=== PATIENT | male | born 1945 | race Caucasian/White ===

== ENCOUNTER 2017-07-28 12:46 | Inpatient (IN) ==
[2017-07-28 14:24] LABS: Basophils # 0.1 K/mcL (0.0-0.2); Basophils % 1.3 %; Eosinophils # 0.2 K/mcL (0.0-0.6); Eosinophils % 3.7 %; Hematocrit 48.2 % (37.5-50.1); Hemoglobin 16.1 g/dL (12.9-16.9); Immature Granulocytes % 0.4 % (0-4); Lymphocytes # 1.5 K/mcL (0.6-4.6); Lymphocytes % 27.7 %; Mean Corpuscular HGB Conc 33.4 g/dL (31.6-35.5); Mean Corpuscular Hemoglobin 28.8 pg (28.0-33.3); Mean Corpuscular Volume 86.1 fL (83.0-100.0); Mean Platelet Volume 9.1 fL (9.4-12.4); Monocytes # 0.4 K/mcL (0.0-1.3); Monocytes % 6.5 %; Neutrophils # 3.3 K/mcL (1.6-8.9); Platelet Count 189 K/mcL (140-400); Red Cell Distribution Width 13.7 % (11.5-14.5); Segmented Neutrophils % 60.4 %
[2017-07-28 14:41] LABS: Alanine Aminotransferase 23 Units/L (7-52); Albumin 4.4 g/dL (3.5-5.7); Albumin/Globulin Ratio 1.6 (1.1-2.2); Alkaline Phosphatase 61 Units/L (34-104); Aspartate Amino Transferase 16 Units/L (13-39); BUN/Creatinine Ratio 13 (6-26); Bilirubin,Direct 0.2 mg/dL (0.0-0.2); Bilirubin,Indirect 0.4 mg/dL (0.0-1.2); Bilirubin,Total 0.6 mg/dL (0.3-1.0); Blood Urea Nitrogen 15 mg/dL (8-23); Calcium 9.2 mg/dL (8.6-10.3); Carbon Dioxide 29 mEq/L (23-29); Chloride 106 mEq/L (98-107); Ethanol < 10 mg/dL (Less than 10); Globulin 2.8 g/dL (2.4-3.5); Glucose 99 mg/dL (70-105); Osmolality,Calculated 291 (280-300); Potassium 4.2 mEq/L (3.5-5.1); Sodium 140 mEq/L (136-145); Total Protein 7.2 g/dL (6.4-8.9); eGFR For African Americans > 60 (> 60); eGFR For Non-African Americans > 60 (> 60)
--- NOTE | 2017-07-28 14:45 | Emergency Department Note ---
Disposition Clinical Impression: Expressive aphasia Disposition: Admitted As Inpatient Condition: Good General Adult HPI - General Chief complaint: ED Neuro Symptoms/Deficit Stated complaint: expressive asphagia, AMS-3 days Time Seen by Provider: 07/28/17 14:40 Source: patient, family Limitations: no limitations - History of Present Illness Pain Scale: 0 - Related Data Home Medications Medication Instructions Recorded Confirmed Metoprolol [Lopressor] 25 mg PO DAILY 07/28/17 07/28/17 Allergies Allergy/AdvReac Type Severity Reaction Status Date / Time No Known Allergies Allergy Verified 07/28/17 13:05 Past Medical History - Past Medical History Medical history: Reports: hypertension Psychiatric history: Reports: no psych history - Social History Smoking Status: Never smoker Smokeless Tobacco Status: No Alcohol use: Reports: none Physical Exam - General Limitations: no limitations General appearance: alert, in no apparent distress Course Vital Signs Temperature 97.6 F 07/28/17 13:02 Pulse Rate 71 07/28/17 13:02 Respiratory Rate 16 07/28/17 13:02 Blood Pressure 189/87 07/28/17 13:02 O2 Sat by Pulse Oximetry 94 07/28/17 13:02 Temperature 97.7 F 07/28/17 19:26 Pulse Rate 74 07/28/17 19:26 Respiratory Rate 17 07/28/17 19:26 Blood Pressure 186/83 07/28/17 19:26 O2 Sat by Pulse Oximetry 96 07/28/17 19:26 Oxygen Delivery Oxygen Delivery Room Air Medical Decision Making - Lab Data Result diagrams: 07/28/17 14:07 07/28/17 14:07 Lab Results 07/28/17 07/28/17 Range/Units 14:07 14:07 WBC 5.4 (4.3-11.1) K/mcL RBC 5.60 H (4.19-5.50) M/mcL Hgb 16.1 (12.9-16.9) g/dL Hct 48.2 (37.5-50.1) % MCV 86.1 (83.0-100.0) fL MCH 28.8 (28.0-33.3) pg MCHC 33.4 (31.6-35.5) g/dL RDW 13.7 (11.5-14.5) % Plt Count 189 (140-400) K/mcL MPV 9.1 L (9.4-12.4) fL Immature Gran % 0.4 (0-4) % Seg Neutrophils % 60.4 % Lymphocytes % 27.7 % Monocytes % 6.5 % Eosinophils % 3.7 % Basophils % 1.3 % Neutrophils # 3.3 (1.6-8.9) K/mcL Lymphocytes # 1.5 (0.6-4.6) K/mcL Monocytes # 0.4 (0.0-1.3) K/mcL Eosinophils # 0.2 (0.0-0.6) K/mcL Basophils # 0.1 (0.0-0.2) K/mcL Sodium 140 (136-145) mEq/L Potassium 4.2 (3.5-5.1) mEq/L Chloride 106 (98-107) mEq/L Carbon Dioxide 29 (23-29) mEq/L BUN 15 (8-23) mg/dL Creatinine 1.14 (0.70-1.30) mg/dL Est GFR ( Amer) > 60 (> 60) Est GFR (Non-Af Amer) > 60 (> 60) BUN/Creatinine Ratio 13 (6-26) Glucose 99 (70-105) mg/dL Calculated Osmolality 291 (280-300) Calcium 9.2 (8.6-10.3) mg/dL Total Bilirubin 0.6 (0.3-1.0) mg/dL Direct Bilirubin 0.2 (0.0-0.2) mg/dL Indirect Bilirubin 0.4 (0.0-1.2) mg/dL AST 16 (13-39) Units/L ALT 23 (7-52) Units/L Alkaline Phosphatase 61 (34-104) Units/L Serum Total Protein 7.2 (6.4-8.9) g/dL Albumin 4.4 (3.5-5.7) g/dL Globulin 2.8 (2.4-3.5) g/dL Albumin/Globulin Ratio 1.6 (1.1-2.2) Ethyl Alcohol < 10 (Less than 10) mg/dL Attestation Statement - Attestation Attestation: I examined this patient and my medical decision-making was reviewed with the Resident Physician. I agree with the documented findings, disposition and treatment plan as described except to the extent set forth below. [id number] time provided Patient arrives with expressive aphasia and some confusion over the past several days. He appears in no acute distress on exam. The patient is not a candidate for TPA given the onset of symptoms being several days ago. The patient was evaluated in conjunction with the resident physician.
--- NOTE | 2017-07-28 14:57 | Emergency Department Note ---
Disposition Clinical Impression: Expressive aphasia Disposition: Admitted As Inpatient Condition: Good General Adult HPI - General Chief complaint: ED Neuro Symptoms/Deficit Stated complaint: expressive asphagia, AMS-3 days Time Seen by Provider: 07/28/17 14:40 Source: patient, family Mode of arrival: ambulatory Limitations: no limitations Nursing Notes Reviewed: Yes Vital Signs Reviewed: Yes - History of Present Illness HPI Narrative: Patient presenting to the ED with the chief complaint of feeling confused for the last few days. States that he really feels fine otherwise, but it feels kind of fuzzy headed. Family states that he was having some trouble getting his words out yesterday. He denies any fever or chills, chest pain, shortness of breath, cough, abdominal pain, nausea, vomiting, diarrhea, rash, pain or swelling in his legs. States he is fairly healthy and is not sure what going on. No changes in vision, numbness or weakness. Pain Scale: 0 - Related Data Home Medications Medication Instructions Recorded Confirmed Metoprolol [Lopressor] 25 mg PO DAILY 07/28/17 07/28/17 Allergies Allergy/AdvReac Type Severity Reaction Status Date / Time No Known Allergies Allergy Verified 07/28/17 13:05 Review of Systems: As reviewed in the HPI. All other systems reviewed are negative or normal. Constitutional: Reports: as per HPI Eyes: Reports: as per HPI ENT ED: Reports: as per HPI Past Medical History - Past Medical History Attestation: Yes The following information was validated with the patient. Source: patient, old records reviewed Medical history: Reports: hypertension Psychiatric history: Reports: no psych history - Social History Smoking Status: Never smoker Smokeless Tobacco Status: No Alcohol use: Reports: none Physical Exam - General Limitations: no limitations General appearance: alert, in no apparent distress - Head Head exam: atraumatic, normocephalic, normal inspection - Eye Eye exam: Present: normal appearance, PERRL, EOMI - ENT ENT exam: normal exam, normal oropharynx, mucous membranes moist - Neck Neck exam: Present: normal inspection, full ROM, trachea midline - Chest Chest inspection: Present: normal inspection, symmetric chest wall rise - Respiratory Respiratory exam: Present: normal lung sounds bilaterally - Cardiovascular Cardiovascular exam: Present: regular rate, normal rhythm, normal heart sounds - Abdominal Exam Abdominal exam: Present: soft, Non-Tender. Absent: tenderness, distention, guarding, rebound, rigidity - Extremities Exam Extremities exam: Present: normal inspection, full ROM. Absent: tenderness, pedal edema - Neurological Exam Neurological exam: Present: alert, oriented X3, CN II-XII intact - Psychiatric Psychiatric exam: Present: normal affect, normal mood - Skin Skin exam: Present: warm, dry, intact, normal color Course Course Narrative: Patient presenting to the ED with feeling fuzzy headed. No acute neurological deficits and is well outside of the window for TPA or thrombectomy. We will get a CT of his head and likely admit for an MRI. Vital Signs Temperature 97.6 F 07/28/17 13:02 Pulse Rate 71 07/28/17 13:02 Respiratory Rate 16 07/28/17 13:02 Blood Pressure 189/87 07/28/17 13:02 O2 Sat by Pulse Oximetry 94 07/28/17 13:02 Temperature 97.7 F 07/28/17 19:26 Pulse Rate 74 07/28/17 19:26 Respiratory Rate 17 07/28/17 19:26 Blood Pressure 186/83 07/28/17 19:26 O2 Sat by Pulse Oximetry 96 07/28/17 19:26 Oxygen Delivery Oxygen Delivery Room Air Medical Decision Making - Medical Records Medical records reviewed: Yes I reviewed the patient's medical records. - Lab Data Lab results reviewed: Yes I reviewed the patient's lab results. Result diagrams: 07/28/17 14:07 07/28/17 14:07 Lab Results 07/28/17 07/28/17 Range/Units 14:07 14:07 WBC 5.4 (4.3-11.1) K/mcL RBC 5.60 H (4.19-5.50) M/mcL Hgb 16.1 (12.9-16.9) g/dL Hct 48.2 (37.5-50.1) % MCV 86.1 (83.0-100.0) fL MCH 28.8 (28.0-33.3) pg MCHC 33.4 (31.6-35.5) g/dL RDW 13.7 (11.5-14.5) % Plt Count 189 (140-400) K/mcL MPV 9.1 L (9.4-12.4) fL Immature Gran % 0.4 (0-4) % Seg Neutrophils % 60.4 % Lymphocytes % 27.7 % Monocytes % 6.5 % Eosinophils % 3.7 % Basophils % 1.3 % Neutrophils # 3.3 (1.6-8.9) K/mcL Lymphocytes # 1.5 (0.6-4.6) K/mcL Monocytes # 0.4 (0.0-1.3) K/mcL Eosinophils # 0.2 (0.0-0.6) K/mcL Basophils # 0.1 (0.0-0.2) K/mcL Sodium 140 (136-145) mEq/L Potassium 4.2 (3.5-5.1) mEq/L Chloride 106 (98-107) mEq/L Carbon Dioxide 29 (23-29) mEq/L BUN 15 (8-23) mg/dL Creatinine 1.14 (0.70-1.30) mg/dL Est GFR ( Amer) > 60 (> 60) Est GFR (Non-Af Amer) > 60 (> 60) BUN/Creatinine Ratio 13 (6-26) Glucose 99 (70-105) mg/dL Calculated Osmolality 291 (280-300) Calcium 9.2 (8.6-10.3) mg/dL Total Bilirubin 0.6 (0.3-1.0) mg/dL Direct Bilirubin 0.2 (0.0-0.2) mg/dL Indirect Bilirubin 0.4 (0.0-1.2) mg/dL AST 16 (13-39) Units/L ALT 23 (7-52) Units/L Alkaline Phosphatase 61 (34-104) Units/L Serum Total Protein 7.2 (6.4-8.9) g/dL Albumin 4.4 (3.5-5.7) g/dL Globulin 2.8 (2.4-3.5) g/dL Albumin/Globulin Ratio 1.6 (1.1-2.2) Ethyl Alcohol < 10 (Less than 10) mg/dL - Radiology Data Radiology results reviewed: Yes I reviewed the patient's radiology results. - EKG Data EKG #1 EKG attestation: Yes I reviewed and interpreted this EKG. EKG results narrative: Sinus rhythm, rate 70, ALYCE 150, QRS 103, QTC 4:15, left axis deviation
[2017-07-28] MEDS ORDERED: Acetaminophen 325 MG TABLET PO PRN (17:57)
[2017-07-28] MEDS ORDERED: Naloxone 0.4 MG/ML INJ IVP PRN (20:44)
--- NOTE | 2017-07-28 21:18 | Internal Med History&Physical ---
Date of Encounter: 07/28/17 Time of Encounter: 19:40 Internal Medicine - H&P: HPI Chief complaint: difficulty speaking Admitted From: Emergency Dept Plans for Post Hospital Care: Home History of present illness: Mr. Melo is a 71 year old male who presents with a 2 day history of difficulty speaking, word finding, and expressing himself. He first noticed the symptoms 2 nights ago while playing cards with some friends. He knew what he wanted to say, but he was unable to verbally express himself and/or communicate with his friends. Symptoms persisted throughout the last 2 days and have slowly started improving. Because of persistence of symptoms, he came to the ER for evaluation where he essentially had a negative workup. CT of the head was performed and revealed an old remote infarct but no acute findings. He underwent MRI of the brain en route from the ER to the floor. MRI findings were positive for acute left basilar ganglia infarct. I contacted neurology and spoke with Dr. Kim and consulted him patient to see patient tomorrow. Patient denies any chronic medical problems other than some blood pressure problems. He denies any prior history of known stroke, heart disease, diabetes , or hyperlipidemia. He is an active individual. Family history is negative for any stroke. He denies any cardiac dysrhythmias as well. Presently, he feels well and almost at baseline. He still has some difficulty with word finding, but otherwise, he is back to baseline. He has had no difficulty swallowing, choking, no numbness, weakness, or paresthesias. Past Med Surg Social Fam HX - Past Medical History Attestation: Yes The following information was validated with the patient. Source: old records reviewed Medical history: hypertension Psychiatric history: no psych history - Past Surgical History Surgical History: no surgical history - Social History Smoking Status: Never smoker Smokeless Tobacco Status: No Alcohol use: none Occupational status: retired Current living situation: Home, With Family Activity Level: Very active Recent Out of Country Travel Within the Last 8 Weeks: No - Family History Mother Living Status: Hx Family Neurologic Disorders: No Father Living Status: Hx Family Neurologic Disorders: No Internal Medicine - H&P: Meds Metoprolol [Lopressor] 25 mg PO DAILY 07/28/17 [History] 3 Allergy/AdvReac Type Severity Reaction Status Date / Time No Known Allergies Allergy Verified 07/28/17 13:05 - Constitutional Constitutional: no chills, no fever(s), no night sweats - EENT Eyes: no blurry vision, no change in vision Ears: no ear pain, no tinnitus Nose, mouth and throat: no nasal congestion, no sinus pressure, no sore throat - Cardiovascular Cardiovascular ROS IM: no chest pain, no dyspnea, no dyspnea on exertion, no irregular heart rhythm, no lightheadedness, no orthopnea, no palpitations, no paroxysmal nocturnal dyspnea, no syncope - Respiratory Respiratory: no cough, no dyspnea, no hemoptysis, no pain on inspiration, no chest congestion, no excessive phlegm production, no change in phlegm color - Gastrointestinal Gastrointestinal: no abdominal pain, no diarrhea, no hematemesis, no hematochezia, no melena, no nausea, no vomiting - Genitourinary Genitourinary ROS male: no dysuria, no flank pain, no hematuria - Musculoskeletal Musculoskeletal ROS IM: no arthralgias, no back pain, no muscle cramps, no muscle weakness, no myalgias - Integumentary Integumentary IM: no rash, no jaundice - Neurological Neurological ROS: abnormal speech (expressive aphasia -- much improved), no confusion, no convulsions, no disequilibrium, no dizziness, no focal weakness, no frequent falls, no headache(s), no numbness, no paresthesias - Psychiatric Psychiatric: no anxiety, no depression - Endocrine Endocrine IM: no polydipsia, no polyuria - Hematologic/Lymphatic Hematologic/Lymphatic: no easy bruising, no lymphadenopathy - Allergic/Immunologic Allergic/Immunologic: no wheezing, no GI upset with certain foods - Constitutional Vitals: Temp Pulse Resp BP Pulse Ox 97.7 F 74 17 186/83 96 07/28/17 19:26 07/28/17 19:26 07/28/17 19:26 07/28/17 19:26 07/28/17 19:26 General appearance: Present: cooperative, A&O X 3, pleasant, no acute distress, answers questions appropriately (has some periods with difficulty speaking at times) - Head Head exam: Present: atraumatic, normal inspection - Eye Eye exam: Present: EOMI, PERRL. Absent: scleral icterus Pupils: Present: normal accommodation - ENT ENT exam: Present: mucous membranes moist, normal exam, normal oropharynx - Neck Neck exam general surgery: Present: full ROM, supple. Absent: lymphadenopathy, tenderness, nuchal rigidity, thyromegaly - Respiratory Respiratory exam: Present: CTAB. Absent: chest wall tenderness, rales, respiratory distress, rhonchi, wheezes - Cardiovascular Cardiovascular exam: Present: RRR, +S1, +S2. Absent: diastolic murmur, systolic murmur - GI/Abdominal GI/Abdominal exam: Present: normal bowel sounds, soft. Absent: guarding, hepatomegaly, mass, rebound, splenomegaly, tenderness - Extremities Exam Extremities exam: Present: full ROM, normal capillary refill, warm, radial pulses palpable and symmetrical. Absent: calf tenderness, joint swelling - Back Exam Back exam: Present: normal inspection. Absent: CVA tenderness (L), CVA tenderness (R) - Neurological Exam Neurological exam: Present: alert, CN II-XII intact, oriented X3, reflexes normal, strengths equal and symetr throughout, speech deficit (mild expressive aphasia/dysphasia). Absent: motor sensory deficit, facial droop - Psychiatric Psychiatric exam: Present: normal affect, normal mood - Skin Skin exam: Present: dry, warm. Absent: rash Internal Med - H&P Results - Labs CBC & Chem 7: 07/28/17 14:07 07/28/17 14:07 - EKG Data -: EKG Interpreted by Myself EKG shows normal: sinus rhythm - EKG Data Prior EKG available for review: no EKG comments: 07/28/17 21:25 NSR; no acute changes - Impressions ITS Impressions Head MRA 07/28/17 18:58 IMPRESSION: Left basal ganglia infarcts are acute. 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 The findings were sent to the Radiology Results Communication Center at 7:39 pm on 07/28/2017to be communicated to a licensed caregiver. D/ / Artie Oliveira MD / Artie Oliveira MD Interpreting Provider: Artie Oliveira MD - Diagnostic Studies Chest x-ray Status: image reviewed by me (negative) - Assessment and plan (1) Stroke Current Visit: Yes Status: Acute Assessment and plan: 1. Will start daily aspirin and STATIN. 2. Consult PT/OT/ST. 3. Consult Neurology -- discussed with Dr. Kim. 4. Will order ECHO and Carotid Dopplers. Qualifiers: CVA mechanism: unspecified Qualified Code(s): I63.9 - Cerebral infarction, unspecified (2) Hypertension Current Visit: Yes Status: Chronic Assessment and plan: 1. Monitor BP and allow for auto-regulation in the face of stroke. 2. If SBP > 180, will treat. 3. Hold Metoprolol for now, resume soon once symptoms resolve. Qualifiers: Hypertension type: essential hypertension Qualified Code(s): I10 - Essential (primary) hypertension (3) Expressive aphasia Current Visit: Yes Status: Acute Assessment and plan: 1. Due to stroke. 2. Steadily improving but not yet back to baseline. 3. Consult ST as above for assessment and therapy. (4) DVT prophylaxis Current Visit: Yes Status: Acute Assessment and plan: 1. Heparin SQ.
[2017-07-28] MEDS: D5% in 0.45% NACL 1,000 ML IVC SCH (22:46)
[2017-07-28] MEDS: *HR* Heparin 5,000 UNIT/ML VIAL SQ SCH (22:47)
[2017-07-29] MEDS: *HR* Heparin 5,000 UNIT/ML VIAL SQ SCH ×2 (05:47→17:10)
[2017-07-29 07:12] LABS: Prothrombin Time 10.8 Seconds (9.4-12.1)
[2017-07-29 07:14] LABS: Activated Partial Thrombo Time 35.1 Seconds (26.0-36.0)
[2017-07-29 07:18] LABS: Basophils # 0.1 K/mcL (0.0-0.2); Basophils % 1.6 %; Eosinophils # 0.2 K/mcL (0.0-0.6); Eosinophils % 4.4 %; Hematocrit 47.6 % (37.5-50.1); Hemoglobin 15.4 g/dL (12.9-16.9); Immature Granulocytes % 0.2 % (0-4); Lymphocytes # 1.8 K/mcL (0.6-4.6); Lymphocytes % 34.8 %; Mean Corpuscular HGB Conc 32.4 g/dL (31.6-35.5); Mean Corpuscular Hemoglobin 27.9 pg (28.0-33.3); Mean Corpuscular Volume 86.2 fL (83.0-100.0); Mean Platelet Volume 9.4 fL (9.4-12.4); Monocytes # 0.3 K/mcL (0.0-1.3); Monocytes % 6.2 %; Neutrophils # 2.7 K/mcL (1.6-8.9); Platelet Count 174 K/mcL (140-400); Red Blood Count 5.52 M/mcL (4.19-5.50); Red Cell Distribution Width 13.7 % (11.5-14.5); Segmented Neutrophils % 52.8 %
[2017-07-29 07:27] LABS: Alanine Aminotransferase 21 Units/L (7-52); Albumin/Globulin Ratio 1.4 (1.1-2.2); Alkaline Phosphatase 55 Units/L (34-104); Aspartate Amino Transferase 16 Units/L (13-39); BUN/Creatinine Ratio 13 (6-26); Bilirubin,Total 0.8 mg/dL (0.3-1.0); Blood Urea Nitrogen 14 mg/dL (8-23); Calcium 8.9 mg/dL (8.6-10.3); Carbon Dioxide 26 mEq/L (23-29); Chloride 109 mEq/L (98-107); Chol/HDL Ratio 5.2 (0-4.9); Cholesterol 181 mg/dL (< 200); Globulin 2.8 g/dL (2.4-3.5); Glucose 117 mg/dL (70-105); HDL Cholesterol 35 mg/dL (40-59); LDL Cholesterol,Calculated 117 mg/dL (0-99); Magnesium 2.3 mg/dL (1.6-2.6); Osmolality,Calculated 294 (280-300); Potassium 3.6 mEq/L (3.5-5.1); Sodium 141 mEq/L (136-145); Total Protein 6.8 g/dL (6.4-8.9); Triglycerides 145 mg/dL (< 150); eGFR For African Americans > 60 (> 60); eGFR For Non-African Americans > 60 (> 60)
[2017-07-29] MEDS: Aspirin 81 MG TAB.CHEW PO SCH (09:02)
[2017-07-29] MEDS: D5% in 0.45% NACL 1,000 ML IVC SCH (11:53)
--- NOTE | 2017-07-29 12:38 | Neurology - Consult Note ---
Date of Encounter: 07/29/17 Time of Encounter: 12:38 Assessment and Plan (1) Stroke Current Visit: Yes Status: Acute 71 year old man with PMH significant for HTN, bilateral hearing difficulty who developed acute onset of speech difficulty, expressive in nature secondary to new cerebral infarct involving the left BG, likely caused to left RADIO TALK SHOW HOST occlusion/ stenosis. Size of the stroke is substantial and involves the area of left BG that can cause speech difficulty, behavioral and mood changes as well especially when on the dominant left left side. Recommend full stroke work up including echocardiography, carotid artery duplex. Agree with aspirin 81mg daily. Need statin therapy for hyperlipidemia. Speech therapy. Qualifiers: CVA mechanism: occlusion Precerebral and cerebral artery: posterior cerebral artery Laterality of affected vessel: left Qualified Code(s): I63.532 - Cerebral infarction due to unspecified occlusion or stenosis of left posterior cerebral artery History of Present Illness Chief complaint: difficulty in speech HPI: Mr. Melo is a 71 year old male with PMH significant for HTN, bilateral hearing loss, carotid mass who is consulted regarding acute onset of speech difficulty. The symptoms started actually 2-3 days prior to admission. He states that he was playing cards with friends and all of a sudden he could not get the right words out. He apparently still has expressive dysphasia even now and can not tell me exactly what happened at the onset of his symptoms. Apparently he was playing cards with them and then when he started talking he was not able to communicate with them. He has however, no focal weakness. Is able to walk. No mental status changes. Initial CT of head showed large left BG focal hypointensity. Subsequent MRI of brain confirmed the finding of acute cerebral infarct at the left BG. MRA of brain showed moderate to severe stenosis at the left RADIO TALK SHOW HOST. Patient denies any discomforts. He still has expressive dysphasia Past Med Surg Social Fam HX - Past Medical History Medical history: hypertension Psychiatric history: no psych history - Past Surgical History Surgical History: no surgical history - Social History Smoking Status: Former smoker Smokeless Tobacco Status: No Alcohol use: none Drug use: other - Family History Mother Living Status: Cause of : Cancer Hx Family Cancer: Yes Hx Family Neurologic Disorders: No Father Living Status: Age at : 80 Cause of : complications post hip fx Hx Family Neurologic Disorders: No Medications and Allergies Metoprolol [Lopressor] 25 mg PO DAILY 07/28/17 [History] 3 Allergy/AdvReac Type Severity Reaction Status Date / Time No Known Allergies Allergy Verified 07/28/17 13:05 All Systems: The remainder of the systems were reviewed and are negative Physical Examination - Vital Signs Vital Signs: Initial Vital Signs Temp Pulse Resp BP Pulse Ox 97.6 F 71 16 189/87 94 07/28/17 13:02 07/28/17 13:02 07/28/17 13:02 07/28/17 13:02 07/28/17 13:02 - Constitutional General appearance: comfortable - Neurologic Sensorimotor examination: intact (Grossly intact) Detailed motor examination: full strength in all major muscle groups Mental Status Examination: awake, alert, oriented to person, oriented to place, oriented to time, follows commands appropriately, answers questions appropriately, no aphasia (Patient has expressive aphasia), no aproxia, expressive aphasia Cranial nerve examination: PERRL, EOMI, visual lao intact, corneal reflexes brisk symmetrically, sensory to face intact, mastication intact, no facial asymmetry is present, no dysarthria, hearing is intact symmetrically, soft palate elevates bilaterally upon phonation, gag reflex intact, flexes SCM and trapezius muscles symmetrically with full power, tongue protrudes midline, no atrophy or facial fasiculations present Results - Laboratory Findings CBC and BMP: 07/29/17 06:37 07/29/17 06:37 Abnormal lab findings: Abnormal lab results RBC 5.52 M/mcL (4.19-5.50) H 07/29/17 06:37 MCH 27.9 pg (28.0-33.3) L 07/29/17 06:37 Chloride 109 mEq/L (98-107) H 07/29/17 06:37 Glucose 117 mg/dL (70-105) H 07/29/17 06:37 POC Glucose 101 mg/dL (70-99) H 07/29/17 11:04 LDL Cholesterol, Calc 117 mg/dL (0-99) H 07/29/17 06:37 HDL Cholesterol 35 mg/dL (40-59) L 07/29/17 06:37 Cholesterol/HDL Ratio 5.2 (0-4.9) H 07/29/17 06:37 - Diagnostic Findings Additional findings: [id number] CT/CT head/brain wo con IMPRESSION: No acute intracranial abnormality. Large remote infarct centered in the anterior basal ganglia on the left as well as a smaller lacunar infarct in the left putamen. Mild chronic small vessel white matter ischemic changes. EXAMINATION: MRI OF THE BRAIN WITHOUT CONTRAST; MRA OF THE HEAD WITHOUT CONTRAST 07/28/2017 6:58 pm; 07/28/2017 7:06 pm TECHNIQUE: Multiplanar multisequence MRI of the brain was performed without the administration of intravenous contrast.; MRA of the head was performed utilizing [id number] imaging with MIP images. No intravenous contrast was administered. COMPARISON: Noncontrast head CT from 3:26 p.m. HISTORY: ORDERING SYSTEM PROVIDED HISTORY: recent possible stroke Additional tech notes: [facility] [address] [facility]; ORDERING SYSTEM PROVIDED HISTORY: aphasia FINDINGS: MRI brain: INTRACRANIAL STRUCTURES/VENTRICLES: There are acute lacunar infarcts within the left basal ganglia measuring up to 2.1 cm in diameter. Chronic white matter microvascular ischemic changes are characterized by foci of subcortical and periventricular white matter signal abnormality. No mass, shift, or bleed is identified. Normal expected signal voids are present within the vas at the base of skull. ORBITS: The visualized portion of the orbits demonstrate no acute abnormality. SINUSES: The visualized paranasal sinuses and mastoid air cells are well aerated. BONES/SOFT TISSUES: The bone marrow signal intensity appears normal. The soft tissues demonstrate no acute abnormality. MRA brain: The anterior and middle cerebral arteries demonstrate normal arborization patterns. The vertebrobasilar system is grossly within normal limits. There are moderate to severe tandem stenoses of the left RADIO TALK SHOW HOST, best seen on image number 9 of series 2, involving the P1 and P2 segments. MR/MR head/brain wo con IMPRESSION: Left basal ganglia infarcts are acute. Moderate to severe tandem stenoses of the left RADIO TALK SHOW HOST. The findings were sent to the Radiology Results Communication Center at 7:39 pm on 07/28/2017to be communicated to a licensed caregiver. Consult Discharge Plan - Plan Referrals: Joseph Seymour MD [Primary Care Provider] -
--- NOTE | 2017-07-29 16:56 | Electrocardiograph Report ---
[address] [address] Test Date: 2017-07-29 Pat Name: Nicholas Melo Department: 113 Room: 3B Gender: M Surveillance Monitor: : 1945 Requested By: Vishnu Cruz Order Number: [id number] Reading MD: Angelina Martinez Measurements Intervals [place] Rate: 77 P: 70 MN: 191 QRS: -7 QRSD: 110 T: 52 QT: 404 QTc: 435 Interpretive Statements SINUS RHYTHM Electronically Signed On 07-29-2017 16:54:32 EDT by Angelina Martinez
--- NOTE | 2017-07-29 18:56 | Internal Med Progress Note ---
Date of Encounter: 07/29/17 Time of Encounter: 12:45 - Assessment and plan (1) Expressive aphasia Current Visit: Yes Status: Acute Assessment and plan: Patient speech is clear, he does appear to answer questions appropriately. He does state, "I cannot spit out what I want to say." Patient has been evaluated by PT and OT, no needs. Speech therapy is still pending. CVA in basal ganglia where speech is controlled. (2) Stroke Current Visit: Yes Status: Acute Assessment and plan: She presented to the emergency department with 2 day history of expressive aphasia. His speech is clear, he does answer questions appropriately, he does state that he has trouble finding words at times. This was noted during physical exam. He has no other focal neurological deficits, strength is strong and equal bilaterally in upper and lower extremities. His gait is steady. Patient has been evaluated by neurology, recommended starting aspirin 81 mg daily and statin. Both of those have been started at admission. Echocardiogram is completed, LVEF of 60-65% with mild LV DD no significant valvular dysfunction, no PFO. Carotid Dopplers completed and results pending. PT OT have no recommendations other than 24-hour supervision after discharge Continue telemetry Continue aspirin, statin Speech therapy still pending. Head CT 07/28/17 14:45 IMPRESSION: No acute intracranial abnormality. Large remote infarct centered in the anterior basal ganglia on the left as well as a smaller lacunar infarct in the left putamen. Mild chronic small vessel white matter ischemic changes. D/ / Maximiliano Flaherty MD / Maximiliano Flaherty MD Interpreting Provider: Maximiliano Flaherty MD Brain MRI 07/28/17 16:26 IMPRESSION: Left basal ganglia infarcts are acute. 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 The findings were sent to the [facility] at 7:39 pm on 07/28/2017to be communicated to a licensed caregiver. D/ / Artie Oliveira MD / Artie Oliveira MD Interpreting Provider: Artie Oliveira MD Head MRA 07/28/17 18:58 IMPRESSION: Left basal ganglia infarcts are acute. 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 The findings were sent to the Radiology Results Communication [facility] at 7:39 pm on 07/28/2017to be communicated to a licensed caregiver. D/ / Artie Oliveira MD / Artie Oliveira MD Interpreting Provider: Artie Oliveira MD Echocardiogram 07/29/17 00:00 Impressions: LVEF 60-65%. Mild to moderate increased LV wall thickness. Mild left ventricular diastolic dysfunction. Normal right ventricular structure and function. No significant valvular dysfunction. No pulmonary hypertension. No PFO with saline contrast injection. Left Ventricular Wall Motion: Rest Echo Findings All wall segments showed normal motion. Findings: Study Quality * Technically adequate exam. ECG Findings * Normal sinus rhythm. Left Ventricle * LVEF 60-65%. * Normal LV chamber size. * Mild to moderate increased LV wall thickness. * Mild left ventricular diastolic dysfunction. Right Ventricle * Normal right ventricular structure and function. Left Atrium * Normal left atrial size. Right Atrium * Normal right atrial size. Mitral Valve * Normal mitral valve structure. * No mitral stenosis. * No mitral regurgitation. Aortic Valve * No aortic regurgitation. * Trileaflet aortic valve. * No aortic stenosis. Tricuspid Valve * Tricuspid valve not well visualized. * No tricuspid regurgitation. Pulmonic Valve * Pulmonic valve is not well visualized. * No pulmonic stenosis. * No pulmonic regurgitation. Pulmonary Artery * Pulmonary artery not well visualized. Aorta * Normally sized aortic root. Pericardium * There is no pericardial effusion present. Interatrial Septum * No evidence of PFO with agitated saline contrast. IVC * The IVC is not well evaluated. Qualifiers: CVA mechanism: occlusion Precerebral and cerebral artery: posterior cerebral artery Laterality of affected vessel: left Qualified Code(s): I63.532 - Cerebral infarction due to unspecified occlusion or stenosis of left posterior cerebral artery (3) Hypertension Current Visit: Yes Status: Chronic Assessment and plan: Chronic. Continue home medications. Permissive hypertension after CVA. Notify provider if systolic greater than 200 mmHg, diastolic greater than 110 mmHg. Qualifiers: Hypertension type: essential hypertension Qualified Code(s): I10 - Essential (primary) hypertension (4) DVT prophylaxis Current Visit: Yes Status: Acute Assessment and plan: Heparin SQ twice a day - Time Spent With Patient Total time spent is greater than 50% in coordination of care (as documented) at patient's floor/unit and/or counseling patient: less than 15 minutes - Subjective Interval history: Patient was seen and assessed at bedside at 1245. He is alert, awake, oriented. His speech is clear, though at times he does appear to have difficulty finding words. He denies headache, blurred vision, nausea, vomiting , diarrhea. No dizziness, chest pain shortness of breath or abdominal pain. Patient is aware that he will stay overnight due to testing not being completed. Currently we are still waiting on carotids and speech therapy. - Constitutional Vitals: Temp Pulse Resp BP Pulse Ox 97.7 F 87 16 187/77 96 07/29/17 15:36 07/29/17 15:36 07/29/17 15:36 07/29/17 15:36 07/29/17 15:36 General appearance: Present: cooperative, A&O X 3, pleasant, no acute distress, answers questions appropriately (has some periods with difficulty speaking at times) - Head Head exam: Present: atraumatic, normal inspection, normocephalic - Eye Eye exam: Present: normal appearance, conjuntiva pink, sclera anicteric - Neck Neck exam general surgery: Present: supple, trachea midline. Absent: lymphadenopathy - Respiratory Respiratory exam: Present: CTAB. Absent: accessory muscle use, chest wall tenderness, rales, rhonchi, wheezes - Cardiovascular Cardiovascular exam: Present: RRR, +S1, +S2. Absent: diastolic murmur, gallop, rubs, systolic murmur - GI/Abdominal GI/Abdominal exam: Present: normal bowel sounds, soft. Absent: distended, hepatomegaly, tenderness - Extremities Exam Extremities exam: Present: normal capillary refill, normal inspection, warm, radial pulses palpable and symmetrical. Absent: calf tenderness, cyanotic, pedal edema, tenderness - Neurological Exam Neurological exam: Present: alert, normal gait, oriented X3, no focal deficits, strengths equal and symetr throughout. Absent: abnormal gait, altered, motor sensory deficit, pronater drift, facial droop, speech deficit - Expanded Neurological Exam Neurological exam expanded: Present: expressive aphasia Patient oriented to: Present: person, place, time Speech: Present: expressive aphasia - Skin Skin exam: Present: dry, intact, normal color, warm. Absent: rash Internal Medicine: Result - Labs CBC & Chem 7: 07/29/17 06:37 07/29/17 06:37 - ABG Interpretation ABG results: PT/INR, D-dimer PT 10.8 Seconds (9.4-12.1) 07/29/17 06:37 Consult Discharge Plan - Plan Referrals: Joseph Seymour MD [Primary Care Provider] -
[2017-07-30 04:27] LABS: Basophils # 0.1 K/mcL (0.0-0.2); Basophils % 1.2 %; Eosinophils # 0.2 K/mcL (0.0-0.6); Eosinophils % 4.1 %; Hematocrit 45.9 % (37.5-50.1); Hemoglobin 15.4 g/dL (12.9-16.9); Immature Granulocytes % 0.3 % (0-4); Lymphocytes # 1.7 K/mcL (0.6-4.6); Mean Corpuscular HGB Conc 33.6 g/dL (31.6-35.5); Mean Corpuscular Hemoglobin 28.7 pg (28.0-33.3); Mean Corpuscular Volume 85.5 fL (83.0-100.0); Mean Platelet Volume 9.9 fL (9.4-12.4); Monocytes # 0.4 K/mcL (0.0-1.3); Monocytes % 6.6 %; Neutrophils # 3.4 K/mcL (1.6-8.9); Platelet Count 158 K/mcL (140-400); Red Blood Count 5.37 M/mcL (4.19-5.50); Red Cell Distribution Width 13.5 % (11.5-14.5); Segmented Neutrophils % 57.8 %
[2017-07-30 04:46] LABS: BUN/Creatinine Ratio 14 (6-26); Blood Urea Nitrogen 15 mg/dL (8-23); Calcium 8.9 mg/dL (8.6-10.3); Carbon Dioxide 24 mEq/L (23-29); Chloride 108 mEq/L (98-107); Glucose 113 mg/dL (70-105); Osmolality,Calculated 288 (280-300); Potassium 3.9 mEq/L (3.5-5.1); Sodium 138 mEq/L (136-145); eGFR For African Americans > 60 (> 60); eGFR For Non-African Americans > 60 (> 60)
[2017-07-30] MEDS: *HR* Heparin 5,000 UNIT/ML VIAL SQ SCH (05:25)
[2017-07-30] MEDS: Aspirin 81 MG TAB.CHEW PO SCH (08:45)
--- NOTE | 2017-07-30 09:19 | Neurology Progress Note ---
Date of Encounter: 07/30/17 Time of Encounter: 09:16 Assessment and Plan (1) Stroke Current Visit: Yes Status: Acute 71 year old man with PMH significant for HTN, bilateral hearing difficulty who developed acute onset of speech difficulty, expressive in nature secondary to new cerebral infarct involving the left BG, likely caused to left DUST SAMPLER occlusion/ stenosis. Size of the stroke is substantial and involves the area of left BG that can cause speech difficulty, behavioral and mood changes as well especially when on the dominant left left side. Await carotid artery duplex result. Agree with aspirin 81mg daily. Need statin therapy for hyperlipidemia. Speech therapy. Qualifiers: CVA mechanism: occlusion Precerebral and cerebral artery: posterior cerebral artery Laterality of affected vessel: left Qualified Code(s): I63.532 - Cerebral infarction due to unspecified occlusion or stenosis of left posterior cerebral artery Subjective Principal diagnosis: CVA speech difficulty Interval history: Patient seen and examined. His speech is better. He is able to repeat no difficulty. No other neurological discomforts. Is able to walk no difficulty echocardiography showed normal LVEF, no regional wall motion abnormality. No PFO. Awaiting carotid artery duplex study. Objective - Constitutional Vitals: Temp Pulse Resp BP Pulse Ox 98.0 F 78 16 181/80 97 07/30/17 06:55 07/30/17 06:55 07/30/17 06:55 07/30/17 06:55 07/30/17 06:55 - Neurological Exam Sensorimotor examination: Present: intact (Grossly intact) Motor Examination: Present: full strength in all major muscle groups Mental Status Examination: Present: awake, alert, oriented to person, oriented to place, oriented to time, follows commands appropriately, answers questions appropriately, no aphasia (Patient has expressive aphasia), no aproxia, expressive aphasia Cranial nerve examination: Present: PERRL, EOMI, visual lao intact, corneal reflexes brisk symmetrically, sensory to face intact, mastication intact, no facial asymmetry is present, no dysarthria, hearing is intact symmetrically, soft palate elevates bilaterally upon phonation, gag reflex intact, flexes SCM and trapezius muscles symmetrically with full power, tongue protrudes midline, no atrophy or facial fasiculations present Results - Laboratory Findings CBC and BMP: 07/30/17 04:02 07/30/17 04:02 Abnormal lab findings: Abnormal lab results Chloride 108 mEq/L (98-107) H 07/30/17 04:02 Glucose 113 mg/dL (70-105) H 07/30/17 04:02 POC Glucose 126 mg/dL (70-99) H 07/29/17 20:50 LDL Cholesterol, Calc 117 mg/dL (0-99) H 07/29/17 06:37 HDL Cholesterol 35 mg/dL (40-59) L 07/29/17 06:37 Cholesterol/HDL Ratio 5.2 (0-4.9) H 07/29/17 06:37 Consult Discharge Plan - Plan Referrals: Joseph Seymour MD [Primary Care Provider] -
[2017-07-30 15:50] VITALS: BP 173/91
--- NOTE | 2017-07-30 17:38 | Discharge Summary ---
- NOTES TO OUTPATIENT PROVIDER Notes to Outpatient Provider: Pt will need outpatient speech therapy, older adult social work specialist was coordinating that. Pt has been placed on ASA and statin, will need refills. Date of Encounter: 07/30/17 Time of Encounter: 09:45 - Discharge Diagnosis (1) Expressive aphasia Priority: Primary Status: Acute Comments: Speech is clear, he does appear at times to have some difficulty finding words, is slow to respond at times. media services coordinator arranging speech therapy. Patient is aware and agreeable. (2) Stroke Priority: Primary Status: Acute Comments: Patient continues to have no other focal neurological deficits, patient is strong and equal bilaterally in upper and lower extremities, gait remained steady. Patient is been evaluated by neurology. He will be started on aspirin 81 mg statin. Patient is aware and agreeable. Carotid Dopplers were completed on 07/29/17, we had to call several places to find the results in late afternoon today. Bilateral carotid system is essentially normal. Qualifiers: CVA mechanism: occlusion Precerebral and cerebral artery: posterior cerebral artery Laterality of affected vessel: left Qualified Code(s): I63.532 - Cerebral infarction due to unspecified occlusion or stenosis of left posterior cerebral artery (3) Hypertension Priority: Secondary Status: Chronic Comments: Chronic. Continue home medications. Qualifiers: Hypertension type: essential hypertension Qualified Code(s): I10 - Essential (primary) hypertension (4) DVT prophylaxis Priority: Secondary Status: Acute Comments: Heparin subcutaneous twice daily. Hospital course: Mr. Melo is a 71 year old male with PMH of HTN. He presented to the ED with c/o expressive aphasia for 2 days prior to arrival. Pt states that he was playing cards with his friends when he began having difficulty finding words. Head CT was negative for any acute intracranial abnormality, there was a large remote infarct centered in the anterior basal ganglia on the left side as well as a smaller lacunar infarct of the left putamen. Also noted was mild chronic small vessel white ischemic changes. MR head/brain showed acute left basal ganglia infarcts, moderate to severe tandem stenoses of the left DESK REPRESENTATIVE. Echocardiogram shows LVEF of 60-65%, mild LV DD, no significant valvular dysfunction, no PFO. Carotid Doppler: bilateral carotid system is essentially normal. Patient was evaluated by PT/OT recommend patient have 24-hour supervision at home. Patient has started speech therapy here for jay speech therapy outpatient. iron worker is arranging. Patient's discharge was delayed due to carotid Doppler report not being available until late afternoon. Patient will be sent home with prescriptions for aspirin 81 mg by mouth daily as well as statin 40 mg daily at bedtime. Patient's vitals are stable, labs are within normal limits. Patient is stable and appropriate for discharge. Discharge discussed with: patient, family, nurse - Time Spent with Patient Total time spent providing and/or coordinating discharge services: Less than 30 minutes - Discharge Medications Prescriptions: Aspirin 81 mg PO DAILY #30 tab.chew Simvastatin [Zocor] 40 mg PO HS #30 tablet Home Medications: Metoprolol [Lopressor] 25 mg PO DAILY 07/28/17 [History] Aspirin 81 mg PO DAILY #30 tab.chew 07/30/17 [Rx] Simvastatin [Zocor] 40 mg PO HS #30 tablet 07/30/17 [Rx] Allergies/Adverse Reactions: 3 Allergy/AdvReac Type Severity Reaction Status Date / Time No Known Allergies Allergy Verified 07/28/17 13:05 Date of admission: 07/29/17 14:57 Primary care physician: Joseph Seymour MD Discharging clinician: Marcella Richardson Anticipated date of discharge: 07/30/17 - Constitutional Vitals: Temp Pulse Resp BP Pulse Ox 97.8 F 87 18 173/91 95 07/30/17 15:48 07/30/17 15:48 07/30/17 15:48 07/30/17 15:48 07/30/17 15:48 General appearance: Present: cooperative, A&O X 3, pleasant, no acute distress, answers questions appropriately (has some periods with difficulty speaking at times) - Head Head exam: Present: atraumatic, normal inspection, normocephalic - Eye Eye exam: Present: PERRL, conjuntiva pink, sclera anicteric Pupils: Present: PERRL - Neck Neck exam general surgery: Present: supple, trachea midline. Absent: lymphadenopathy - Respiratory Respiratory exam: Present: CTAB. Absent: accessory muscle use, rales, respiratory distress, rhonchi, wheezes - Cardiovascular Cardiovascular exam: Present: RRR, +S1, +S2. Absent: diastolic murmur, gallop, rubs, systolic murmur - GI/Abdominal GI/Abdominal exam: Present: normal bowel sounds, soft. Absent: distended, hepatomegaly, tenderness - Extremities Exam Extremities exam: Present: normal capillary refill, normal inspection, warm, radial pulses palpable and symmetrical. Absent: calf tenderness, cyanotic, pedal edema, tenderness - Neurological Exam Neurological exam: Present: alert, normal gait, oriented X3, no focal deficits, strengths equal and symetr throughout. Absent: altered, motor sensory deficit, facial droop, speech deficit - Skin Skin exam: Present: dry, intact, normal color, warm. Absent: rash - Patient Status Disposition: Home, Self-Care Condition: Good Functional capacity at discharge: independent ambulation Overall status at discharge: patient is progressing back to baseline - Discharge Instructions Follow Up With: Tori Cox CNP [Advanced Practice Nurse] - 08/03/17 10:30 am Additional Instructions: Speech therapy as scheduled. Your prescriptions are at your pharmacy. PT/OT recommend that you have 24 hour supervision, follow up with your PCP in the next week for a recheck. Take your medications as directed. Resume your normal diet and activities as tolerated. - Diet and Activity Activity: increase activity as tolerated Diet: advance to your usual diet
--- NOTE | 2017-07-31 06:47 | Electrocardiograph Report ---
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
== END 2017-07-30 17:58 | disposition home or self-care (01) | DRG 66 ==
LOC: 3BNU 12:46 → EMEROO 12:46 → 3BNU 18:27
PROVIDERS: ADMIT Internal Medicine; ATTEND Registered Nurse